=== PATIENT | female | born 1980 | race African-American/Black ===

== ENCOUNTER 2025-01-20 14:44 | Emergency (ER) | payer SELFPAY ==
[~2025-01-20] VITALS: Ht 170.2 cm; Wt 125.0 kg
[2025-01-20 14:48] VITALS: BP 154/84; PULSE 70; RESP 16; TEMP 98.4; O2SAT 96
== END 2025-01-20 18:41 | disposition left against medical advice (07) ==
LOC: ER 14:44
DX: F41.9 Anxiety disorder, unspecified (principal); Z79.899 Other long term (current) drug therapy
CPT/HCPCS: 93005; 99281; 99283